=== PATIENT | female | born 1985 ===

== ENCOUNTER 2019-01-19 16:30 | Emergency (ER) | payer BC ==
[2019-01-19 16:30] VITALS: BMI 25.8
[2019-01-19 16:45] VITALS: TEMP 98
[2019-01-19] MEDS ORDERED: Sodium Chloride 0.9% 1,000 ML IV STA (17:12)
[2019-01-19 17:46] LABS: BASO % 0.5 % (0.0-2.0); EOS % 0.3 % (0.0-4.0); LYMPH # 1.2 K/uL (1.0-4.3); LYMPH % 18.7 % (20.0-40.0); MEAN CELL VOLUME 78.8 fl (81.0-99.0); MEAN CORPUSCULAR HEMOGLOBIN 26.8 pg (27.0-31.0); MEAN PLATELET VOLUME 8.4 fl (7.2-11.7); MONO # 0.5 K/uL (0.0-0.8); MONO % 7.5 % (0.0-10.0); NEUT # 4.8 K/uL (1.8-7.0); NRBC % 0.1 % (0.0-0.0); RBC 4.1 Mil/uL (3.80-5.20); RED CELL DISTRIBUTION WIDTH 15.2 % (11.5-14.5); WHITE BLOOD COUNT 6.6 K/uL (4.8-10.8)
--- NOTE | 2019-01-19 17:52 | ED PDOC ---
Syncope/Near Syncope/Dizziness Time Seen by Provider: 01/19/19 16:58 Chief Complaint (Nursing): Weakness/Neurological Deficit Chief Complaint (Provider): Syncope, Migraine History Per: Patient History/Exam Limitations: no limitations Onset/Duration Of Symptoms: Days (x5) Current Symptoms Are (Timing): Still Present Additional Complaint(s): 33 year old female with pmhx of Grave's disease, migraines, and vertigo presents to the ED for a witnessed syncopal event into a bystander's arms. Patient states that for the past five days she has had blurry vision and a photo/phonophobia migraine which she thought was a typical migraine, but today she developed associated dizziness and weakness at work, prompting her to pass out. Patient reports these symptoms feel like past vertigo episodes. Otherwise, denies fever, neck pain, neck stiffness, and vomiting. PMD: Dr. Post. Past Medical History Reviewed: Historical Data, Nursing Documentation, Vital Signs Vital Signs: Last Vital Signs Temp 98.0 F 01/19/19 16:40 Pulse 89 01/19/19 16:40 Resp 15 01/19/19 16:40 BP 150/77 01/19/19 16:40 Pulse Ox 100 01/19/19 16:40 - Medical History PMH: Graves' Disease, Migraine - Surgical History Surgical History: Other surgeries: eyelid surgery in light of Grave's disease - Family History Family History: States: Unknown Family Hx - Social History Current smoker - smoking cessation education provided: No Alcohol: None Drugs: Denies - Home Medications Home Medications: Ambulatory Orders Medication Instructions Recorded Acetaminophen/Butalbital/Caf 1 tab PO TID PRN #20 tab 04/04/16 [Fioricet] Metoclopramide [Reglan] 1 tab PO TID PRN #25 tab 04/04/16 Thyroid Med. 04/04/16 Methocarbamol [Robaxin] 500 mg PO TID #14 tab 10/10/16 traMADol [Ultram] 50 mg PO TID #7 tab 10/10/16 - Allergies Allergies/Adverse Reactions: Allergies Allergy/AdvReac Type Severity Reaction Status Date / Time No Known Allergies Allergy Verified 01/19/19 16:39 Review of Systems ROS Statement: Except As Marked, All Systems Reviewed And Found Negative Constitutional: Negative for: Fever Eyes: Positive for: Vision Change (blurry vision) Gastrointestinal: Negative for: Vomiting Musculoskeletal: Negative for: Neck Pain (or stiffness) Neurological: Positive for: Weakness, Headache (with photo/phonophobia), Dizziness, Other (witnessed syncopal episode) Physical Exam - Reviewed Nursing Documentation Reviewed: Yes Vital Signs Reviewed: Yes - Physical Exam Appears: Positive for: No Acute Distress Head Exam: Positive for: ATRAUMATIC, NORMAL INSPECTION, NORMOCEPHALIC Skin: Positive for: Normal Color, Warm. Negative for: Rash Eye Exam: Positive for: EOMI, Normal appearance, PERRL ENT: Positive for: Normal ENT Inspection Neck: Positive for: Normal, Painless ROM, Supple Cardiovascular/Chest: Positive for: Regular Rate, Rhythm Respiratory: Positive for: Normal Breath Sounds. Negative for: Respiratory Distress Gastrointestinal/Abdominal: Positive for: Normal Exam, Soft. Negative for: Tenderness Back: Positive for: Normal Inspection Extremity: Positive for: Normal ROM (all extremities) Neurological/Psych: Positive for: Awake, Alert, Normal Tone, Symmetric/Intact Strength (5/5 x4 extremities), Oriented (x3), Cerebellar Tests (intact), hourly team members II- XII (intact). Negative for: Motor/Sensory Deficits, Facial Droop - Laboratory Results Result Diagrams: 01/19/19 17:40 01/19/19 17:40 - ECG O2 Sat by Pulse Oximetry: 100 (RA) Pulse Ox Interpretation: Normal Medical Decision Making Medical Decision Making: Time: 1711 Impression: syncopal episode Plan: --CT head without contrast --CMP --T4 --CBC with differential --Normal saline IV fluids --Reglan 10mg IVP --Zofran 4mg IV --Reevaluation 1899 Patient care endorsed to Dr. Randolph pending CT and reevaluation. Scribe Attestation: Documented by Sahra Geller, acting as a scribe for Rajeev Branch MD. Provider Scribe Attestation: All medical record entries made by the Scribe were at my direction and personally dictated by me. I have reviewed the chart and agree that the record accurately reflects my personal performance of the history, physical exam, me dical decision making, and the department course for this patient. I have also personally directed, reviewed, and agree with the discharge instructions and disposition. Disposition - Clinical Impression Clinical Impression: Migraine - Patient ED Disposition Is Patient to be Admitted: Transfer of Care - Disposition Referrals: Benigno Joy MD [Family Provider] - Disposition: Transfer of Care Disposition Time: 19:00 Condition: IMPROVED Instructions: Migraine Headache (DC) Forms: [facility] (Stateless), [employer] ED School/Work Excuse Patient Signed Over To: Nino Randolph Handoff Comments: pending labs (thyroid studies)imaging reeval
[2019-01-19 18:14] LABS: ALB/GLOB RATIO 1.2 (1.0-2.1); ALBUMIN 4.3 g/dL (3.5-5.0); BLOOD UREA NITROGEN 11 mg/dl (7-17); CALCIUM 9.3 mg/dL (8.4-10.2); GFR NON-AFRICAN AMERICAN > 60
[2019-01-19 18:20] LABS: ALT/SGPT 26 U/L (9-52); AST/SGOT 31 U/L (14-36)
--- NOTE | 2019-01-19 19:41 | ED PDOC ---
- Laboratory Results Result Diagrams: 01/19/19 17:40 01/19/19 17:40 Lab Results: Total Bilirubin 0.5 mg/dl (0.2-1.3) 01/19/19 17:40 AST 31 U/L (14-36) 01/19/19 17:40 ALT 26 U/L (9-52) 01/19/19 17:40 Alkaline Phosphatase 63 U/L (38-126) 01/19/19 17:40 Total Protein 7.8 G/DL (6.3-8.2) 01/19/19 17:40 Albumin 4.3 g/dL (3.5-5.0) 01/19/19 17:40 Globulin 3.5 gm/dL (2.2-3.9) 01/19/19 17:40 Albumin/Globulin Ratio 1.2 (1.0-2.1) 01/19/19 17:40 - ECG O2 Sat by Pulse Oximetry: 100 (RA) Medical Decision Making Medical Decision Makin Patient care endorsed from Dr. Branch pending CT and reevaluation. CT FINDINGS: BRAIN: No acute intraparenchymal hemorrhage. No mass lesion. No CT evidence for acute territorial infarct. No midline shift or extra-axial collections. VENTRICLES: No hydrocephalus. ORBITS: The orbits are unremarkable. SINUSES AND MASTOIDS: The paranasal sinuses and mastoid air cells are clear. BONES: No fracture. SOFT TISSUES: Unremarkable. IMPRESSION: No acute intracranial abnormality. 1955 Patient report she is "feeling so much better," with more energy and a resolved headache. 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 Vitals stable and patient very well appearing. Scribe Attestation: Documented by Sahra Geller, acting as a scribe for Nino Randolph MD. Provider Scribe Attestation: All medical record entries made by the Scribe were at my direction and personally dictated by me. I have reviewed the chart and agree that the record accurately reflects my personal performance of the history, physical exam, medical decision making, and the department course for this patient. I have also personally directed, reviewed, and agree with the discharge instructions and disposition. Disposition - Clinical Impression Clinical Impression: Migraine - POA Present On Arrival: None - Disposition Referrals: Benigno Joy MD [Family Provider] - Disposition: Routine/Home Disposition Time: 19:54 Condition: IMPROVED Instructions: Migraine Headache (DC) Forms: [facility] ([place]ian), [facility] ED School/Work Excuse
[2019-01-19 20:07] VITALS: BP 120/73; PULSE 90; RESP 16
[2019-01-20 02:15] VITALS: O2SAT 100
--- NOTE | 2019-01-20 08:35 | CT ---
Date of service: 01/19/2019 PROCEDURE: CT HEAD WITHOUT CONTRAST. HISTORY: Headache COMPARISON: None available. TECHNIQUE: Axial computed tomography images were obtained through the head/brain without intravenous contrast. Radiation dose: Total exam DLP = 712.75 mGy-cm. This CT exam was performed using one or more of the following dose reduction techniques: Automated exposure control, adjustment of the mA and/or kV according to patient size, and/or use of iterative reconstruction technique. FINDINGS: HEMORRHAGE: No intracranial hemorrhage. BRAIN: Dial-white matter differentiation is preserved. There is no mass, mass effect or abnormal extra-axial fluid collection. There is no territorial infarction. The midline sagittal structures are normal. VENTRICLES: The ventricles are normal in size, shape and configuration. CALVARIUM: There is no calvarial fracture or extracranial soft tissue swelling. PARANASAL SINUSES: Predominantly clear. MASTOID AIR CELLS: Predominantly clear. OTHER FINDINGS: None. IMPRESSION: No acute intracranial abnormality. A preliminary report was provided by [employer].
== END 2019-01-19 19:55 | disposition home or self-care (01) ==
LOC: H.ER 16:30
DX: G43.909 Migraine, unspecified, not intractable, without status migrainosus (principal)
CPT/HCPCS: 70450; 80053; 81025; 82948; 84436; 84443; 85025; 96361; 96374; 96375; 99285; J2405; J2765; J7030